=== PATIENT | male | born 1970 | race Caucasian/White ===

== ENCOUNTER 2023-08-21 09:37 | Emergency (ER) | payer BC ==
[2023-08-21 11:08] LABS: Actual Bicarbonate (HCO3v) 18.6 mEq/L (22-28); Analyzer IN Cardio ER; Base Excess -3.3 mEq/L (-2.0 to +3.0); Chloride (VBG) 102 mmol/L (98-106); Hematocrit-VBG 44 % (42.0-52.0); Sodium 137 mmol/L (133-146); pH (venous) 7.473 (7.32-7.43)
[2023-08-21 11:19] LABS: #Eosinphils 0.1 thou/uL (0.0-0.7); #Monocytes 0.6 thou/uL (0.11-0.59); #Neutrophils 7.1 thou/uL (1.40-6.50); %Basophils 0.4 % (0.0-1.0); %Eosinophils 0.7 % (0.0-10.0); %Lymphocytes 5.5 % (21.0-51.0); %Monocytes 6.8 % (0.0-10.0); %Neutrophils 86.2 % (42.0-75.0); Hematocrit 42.9 % (42.0-52.0); Hemoglobin 14.9 g/dL (14.0-18.0); Mean Corpuscular HGB CONC 34.7 g/dL (32.0-36.0); Mean Corpuscular Hemoglobin 30.9 pg (27.0-31.0); Platelet Count 206 10x3/uL (130-400); RBC Distribution Width 12.5 % (11.5-14.5); Red Blood Cell (RBC) Count 4.82 mill/uL (4.70-6.10); White Blood Cell (WBC) Count 8.2 10x3/uL (4.8-10.8)
[2023-08-21 11:45] LABS: Troponin I Less than 0.010 ng/mL (< 0.028)
[2023-08-21 11:48] LABS: Acetaminophen Less than 10 mcg/mL (10.0-30.0); Alcohol Less than 10.0 mg/dL (Less than 10); Salicylate Less than 8.0 mg/dL (15.0-30.0)
[2023-08-21 12:26] LABS: Albumin 4.3 g/dL (3.5-5.0)
[2023-08-21 12:27] LABS: Calcium 9.1 mg/dL (7.8-10.44); Chloride 103 mmol/L (98-107); Potassium 3.5 mmol/L (3.5-5.1); Sodium 134 mmol/L (136-145)
[2023-08-21 12:28] LABS: Globulin 3.2 g/dL (2.4-3.5); Glucose 214 mg/dL (70-105); Protein, Total 7.5 g/dL (6.0-8.3)
[2023-08-21 12:30] LABS: Anion Gap 16 mmol/L (10-20); Bilirubin, Total 0.8 mg/dL (0.2-1.2); Carbon Dioxide 19 mmol/L (22-29)
[2023-08-21 12:31] LABS: Alkaline Phosphatase 65 U/L (40-110); Calc. Creatinine Clearance 0 mL/min (70-130); Estimated GFR 94
[2023-08-21 12:32] LABS: BUN (Urea Nitrogen) 12 mg/dL (8.9-20.6)
[2023-08-21 12:33] LABS: AST (SGOT) 28 U/L (5-34)
[2023-08-21 12:34] LABS: ALT (SGPT) 29 U/L (8-55); CK (CPK) 86 U/L (30-200)
[2023-08-21 12:49] LABS: Lipase 22 U/L (8-78)
== END 2023-08-21 13:12 | disposition home or self-care (01) ==
LOC: ERS 09:37
DX: E11.65 Type 2 diabetes mellitus with hyperglycemia (principal); R19.7 Diarrhea, unspecified; I10 Essential (primary) hypertension; E78.5 Hyperlipidemia, unspecified; F17.200 Nicotine dependence, unspecified, uncomplicated; Z79.4 Long term (current) use of insulin; Z79.899 Other long term (current) drug therapy
CPT/HCPCS: 36416; 71045; 80053; 80307; 82010; 82550; 82805; 83690; 84484; 85025; 87040; 93005; 96360; 96361